=== PATIENT | male | born 1975 | race Caucasian/White ===

== ENCOUNTER 2017-09-29 19:40 | Emergency (ER) | payer BC ==
[2017-09-29 19:50] VITALS: BP 117/74; PULSE 62; TEMP 98; O2SAT 98
[2017-09-29] MEDS ORDERED: Tdap Vaccine 0.5 ml Vial (10-64 yrs) IM ONE (20:04)
[2017-09-29] MEDS ORDERED: Amoxicillin-Clav 875-125 mg Tab PO STA (20:04)
--- NOTE | 2017-09-29 20:06 | C.PDOC ---
History Of Present Illness 42 y/o male presents to ED for wound check after being bit by dog while at work prior to arrival. 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 Patient states medical chemist of dog told him dog is UTD with immunizations. Patient denies drainage, bleeding, numbness or weakness. Tetanus Vaccine is not UTD. Time Seen by Provider: 09/29/17 19:55 Chief Complaint (Nursing): Bite History Per: Patient History/Exam Limitations: no limitations Onset/Duration Of Symptoms: Hrs Current Symptoms Are (Timing): Still Present Location Of Injury: Left: Leg Past Medical History Reviewed: Historical Data, Nursing Documentation, Vital Signs Vital Signs: Last Vital Signs Temp 98 F 09/29/17 19:48 Pulse 62 09/29/17 19:48 Resp 20 09/29/17 20:43 BP 117/74 09/29/17 19:48 Pulse Ox 98 09/29/17 20:06 - Medical History PMH: No Chronic Diseases Surgical History: No Surg Hx Family History: States: No Known Family Hx - Social History Hx Alcohol Use: No Hx Substance Use: No Review Of Systems Constitutional: Negative for: Fever, Chills Cardiovascular: Negative for: Chest Pain Respiratory: Negative for: Shortness of Breath Musculoskeletal: Positive for: Leg Pain. Negative for: Foot Pain Skin: Negative for: Rash Neurological: Negative for: Weakness, Numbness Physical Exam - Physical Exam Appears: Non-toxic, No Acute Distress Skin: Warm, Dry, No Rash Head: Atraumatic, Normacephalic Eye(s): bilateral: Normal Inspection Oral Mucosa: Moist Extremity: Capillary Refill (<2 seconds), No Deformity, Other (Superficial bite wound to left lateral calf. No deep puncture wound or laceration. No active bleeding) Extremity: Bilateral: Normal ROM Pulses: Left Dorsalis Pedis: Normal Neurological/Psych: Oriented x3, Normal Motor, Normal Sensation Gait: Steady ED Course And Treatment O2 Sat by Pulse Oximetry: 98 (RA) Pulse Ox Interpretation: Normal Medical Decision Making Medical Decision Making: Impression:Dog Bite Plan: * Amoxicillin * Tetanus vaccine Progress: Wound was cleaned and patient was instructed to follow up with PMD in 1-2 days Disposition Counseled Patient/Family Regarding: Diagnosis, Need For Followup, Rx Given - Disposition Disposition: HOME/ ROUTINE Disposition Time: 20:06 Condition: GOOD Additional Instructions: Keep area clean and dry. May wash gently with soap and water. Change dressing 1- 2 times daily. Return to ER if fever occurs, redness or swelling around wound, pus in the wound. 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 - Scribe Statement The provider has reviewed the documentation as recorded by the Lydia Lambert All medical record entries made by the Lydia were at my direction and personally dictated by me. I have reviewed the chart and agree that the record accurately reflects my personal performance of the history, physical exam, medical decision making, and the department course for this patient. I have also personally directed, reviewed, and agree with the discharge instructions and disposition.
[2017-09-29] MEDS ORDERED: Amoxicillin-Clav 875-125 mg Tab PO ONE (20:10)
[2017-09-29 20:47] VITALS: RESP 20
== END 2017-09-29 20:43 | disposition home or self-care (01) ==
LOC: C.ER 19:40
DX: S80.872A Other superficial bite, left lower leg, initial encounter (principal); W54.0XXA Bitten by dog, initial encounter; Y92.89 Other specified places as the place of occurrence of the external cause; Y99.0 Civilian activity done for income or pay; Z23 Encounter for immunization